=== PATIENT | male | born 1950 | race Caucasian/White ===

== ENCOUNTER 2019-09-18 13:44 | Inpatient (IN) | payer MEDICARE ==
[2019-09-18 14:34] LABS: #Eosinphils 0.2 thou/uL (0.0-0.7); #Lymphocytes 1.6 thou/uL (1.20-3.40); #Monocytes 0.7 thou/uL (0.11-0.59); #Neutrophils 7.5 thou/uL (1.40-6.50); %Eosinophils 1.9 % (0.0-10.0); %Lymphocytes 16.1 % (21.0-51.0); %Monocytes 7.3 % (0.0-10.0); %Neutrophils 74.7 % (42.0-75.0); Hemoglobin 14.5 g/dL (14.0-18.0); Mean Corpuscular HGB CONC 32.7 g/dL (32.0-36.0); Mean Corpuscular Hemoglobin 30.2 pg (27.0-31.0); Mean Corpuscular Volume 92.5 fL (78.0-98.0); Mean Platelet Volume 7.1 fL (7.4-10.4); Platelet Count 267 thou/uL (130-400); RBC Distribution Width 13.3 % (11.5-14.5); White Blood Cell (WBC) Count 10.1 thou/uL (4.8-10.8)
[2019-09-18] MEDS ORDERED: Piperacillin/Tazobactam 4.5 GM VIAL ONE (14:42)
[2019-09-18 14:59] LABS: ALT (SGPT) 14 U/L (8-55); AST (SGOT) 12 U/L (5-34); Albumin 3.8 g/dL (3.4-4.8); Alkaline Phosphatase 99 U/L (40-110); Anion Gap 16 mmol/L (10-20); BUN (Urea Nitrogen) 16 mg/dL (8.4-25.7); Bilirubin, Total 0.3 mg/dL (0.2-1.2); CK (CPK) 53 U/L (30-200); CRP (Inflammatory) 14.52 mg/dL (= or < 0.5); Calc. Creatinine Clearance 0 mL/min (70-130); Calcium 9.3 mg/dL (7.8-10.44); Carbon Dioxide 25 mmol/L (23-31); Chloride 101 mmol/L (98-107); Estimated GFR-MDRD 60; Globulin 3.5 g/dL (2.4-3.5); Glucose 287 mg/dL (80-115); Protein, Total 7.3 g/dL (5.8-8.1); Sodium 138 mmol/L (136-145)
--- NOTE | 2019-09-18 15:18 | RAD ---
Exam:3 views left foot HISTORY: Diabetic ulcer. Infection. COMPARISON: None FINDINGS: There does appear to be a linear foreign body along the plantar surface of the foot at the level of the fourth/fifth distal metatarsal. There is associated soft tissue swelling. Vascular calcifications are noted Lisfranc alignment is maintained. No fracture. No cortical irregularity. No erosive or destructive changes. IMPRESSION: 1. Radiopaque foreign body. There is associated soft tissue swelling. Correlate for cellulitis. No ra diographic evidence of osteomyelitis.
[2019-09-18] MEDS ORDERED: Bacitracin 1 PK ONE (16:56)
--- NOTE | 2019-09-18 17:10 | PDOC.FPRHP ---
Addendum entered and electronically signed by Franck Dixon MD 09/18/19 18:59 : Allergies: NKDA Medication List: [place] 10 mg PO Daily, Amlodipine 5 mg PO daily, ASA 81 mg PO daily, Nebivolol 10 mg PO daily, Cetirizine 10 mg PO daily, Furosemide 40 mg PO daily, Gabapentin 600 mg PO daily, Metformin 500 mg PO daily, Jardiance (Dosage Unknown), Original Note: - History of Present Illness Chief Complaint: Left Foot Wound History of Present Illness: Mr. Henley is a 69 y/o male with a PMH significant for uncontrolled DM2, CAD s/p 3-vessel CABG, HTN and HLD who presents to the ED with a suspected diabetic foot ulcer on his left foot. The patient states that he had been driving to [place] from [place] over the past 2 days when he noticed that his left foot was beginning to swell. He could not appreciate any pain on his foot because of advance diabetic neuropathy, so he treated the swelling conservatively with a compression stocking. Upon arrival to [place], his noted that the underside of his left foot appeared swollen, with intermittent erythema extending to the mid- tibia and palpable warmth, which prompted his presentation to the ED. He admits to subjective chills, but denies loss of movement of the affected extremity, fevers, N/V/D, ABD pain, or polyuria. ED Course: While in the ED, Mr. Henley received 1 dose of Vancomycin and Zosyn at ~1600, and a 3-view X-Ray of his left foot that demonstrated a radio-opaque foreign body embedded within the soft tissue overlying the [address]th [address] Blade Dodd (General Surgery) was consulted and gently debrided the area with a sterile blade until the foreign body could be removed. Bleeding was minimal, and the foreign body was successfully retrieved, appearing to be a small piece of metallic wire. - History PMHx: DM2, CAD, HTN, HLD, Colon Cancer (2005) PSHx: s/p CABG (2018), Partial Colectomy, Cholecystectomy FHx: Did Not Obtain Social: Remote history of MJ abuse in the 1970s - denies EtOH, tobacco and drug abuse at this time. - Review of Systems General: reports: fever/chills Eyes: denies: eye pain, vision changes ENT: reports: nasal congestion. denies: rhinorrhea Respiratory: reports: congestion. denies: cough, shortness of breath Cardiovascular: denies: chest pain, palpitation Gastrointestinal: denies: nausea, vomiting, diarrhea, abdominal pain Genitourinary: denies: dysuria, polyuria Skin: reports: lesions (See HPI) Musculoskeletal: reports: swelling. denies: pain, tenderness Neurological: reports: numbness (Lower Extremities). denies: syncope, weakness - Vital signs BP: [141/64] HR: [65] RR: [67] Tmax: [100.9] Pox: [97]% on [] Wt: [115 kg] - Physical Exam Constitutional: NAD, awake, alert and oriented, well developed HEENT: normocephalic and atraumatic, PERRLA, no scleral icterus, grossly normal vision, grossly normal hearing, normal nasal mucosa, MMM, oropharynx clear Neck: supple, FROM, no LAD, no JVD Chest: no-tender to palpation, no lesions, other (Sternotomy scar) Heart: RRR, normal S1/S2, no murmurs/rubs/gallops, pulses present (+2 pulses at Radial and Dorsalis Pedis Arteries) Lungs: CTAB, no respiratory distress, good air movement, no rales/rhonchi, no wheezing, no retractions Abdomen: soft, non-tender, bowel sounds present, no masses/distention Musculoskeletal: normal structure, normal tone, ROM grossly normal Neurological: no focal deficit Skin: no jaundice -Skin: Minimal swelling of the left foot with occasional streaks of erythema extending to the mid-tibia. A small area of ulceration was overlying the 4th metatarsal without active bleeding or drainage. There was no pain or tenderness, and there was no decreased ROM. Heme/Lymphatic: no unusual bruising or bleeding, no purpura Psychiatric: normal mood and affect, intact recent and remote memory FMR H&P: Results - Labs Result Diagrams: 09/18/19 14:15 09/18/19 14:15 Lab results: WBC 10.1 thou/uL (4.8-10.8) 09/18/19 14:15 Hgb 14.5 g/dL (14.0-18.0) 09/18/19 14:15 Hct 44.3 % (42.0-52.0) 09/18/19 14:15 MCV 92.5 fL (78.0-98.0) 09/18/19 14:15 Plt Count 267 thou/uL (130-400) 09/18/19 14:15 Neutrophils % 74.7 % (42.0-75.0) 09/18/19 14:15 ESR W[place]gren 97 mm/hr (Less than 20) 09/18/19 14:15 Sodium 138 mmol/L (136-145) 09/18/19 14:15 Potassium 4.0 mmol/L (3.5-5.1) 09/18/19 14:15 Chloride 101 mmol/L (98-107) 09/18/19 14:15 Carbon Dioxide 25 mmol/L (23-31) 09/18/19 14:15 BUN 16 mg/dL (8.4-25.7) 09/18/19 14:15 Creatinine 1.21 mg/dL (0.7-1.3) 09/18/19 14:15 Glucose 287 mg/dL (80-115) H 09/18/19 14:15 Lactic Acid 2.0 mmol/L (0.5-2.2) 09/18/19 14:15 Calcium 9.3 mg/dL (7.8-10.44) 09/18/19 14:15 Total Bilirubin 0.3 mg/dL (0.2-1.2) 09/18/19 14:15 AST 12 U/L (5-34) 09/18/19 14:15 ALT 14 U/L (8-55) 09/18/19 14:15 Alkaline Phosphatase 99 U/L (40-110) 09/18/19 14:15 Creatine Kinase 53 U/L (30-200) 09/18/19 14:15 C-Reactive Protein 14.52 mg/dL (= or < 0.5) H 09/18/19 14:15 Serum Total Protein 7.3 g/dL (5.8-8.1) 09/18/19 14:15 Albumin 3.8 g/dL (3.4-4.8) 09/18/19 14:15 - Radiology Interpretation Other Status: image reviewed by me, report reviewed by me (3-View X-Ray (Left Foot): Radio-opaque foreign body noted within the soft tissue overlying the 4th metatarsal) FMR H&P: A/P - Plan 1. Cellulitis of Left Foot, 2/2 retained foreign body -s/p Vanc, Zosyn and debridement in the ED -Currently on Vanc 1 g Q8H and Zosyn 3.375 g Q6H, renally dosed -General Surgery: Consulted, currently following -Wound Care: Consulted 2. DM2, poorly controlled -Per the patient, home medication regimen includes Metformin 1000 mg PO BID, Jardiance (Dosage Unknown) and Humalog 100-50-100 AC -Patient is unsure of his HgA1C or what his normal blood sugar readings are -Severe peripheral neuropathy -Initiate Metformin 1000 mg PO BID -Aggressive Sliding Scale Insulin -Make further adjustments as 24H Insulin requirements are known 3. HTN, poorly controlled -BP: 141/64 on 09/18 -Restart home medication regimen -Hydralazine 10 mg PO Q4H PRN if BP > 180/100 4. CAD, s/p CABG -Restart home medication regimen Code: Full Diet: Heart Healthy / Carbohydrate COnscious Activity: Ad maci VTE PPx: Lovenox 40 mg SC Dispo: Patient is s/p debridement and currently stable on the Medical Floor. Continue IV antibiotic regimen per above and coordinate as needed with General Surgery, Wound Care. Expected LOS > 48H. FMR H&P: Upper Level - Pertinent history 69 yo M w/ PMH of DMII, CAD, HTN and DM neuropathy presetns for LLE swelling redness and plantar foot ulcer. Pt reports swelling started two day prior to arrival to ED and he wrapped leg. When he unwrapped leg pt reported redness and warmth in addition to ulcer. In ED pt noted to have foreign body underneath ulcer site near left 4th metatarsal. He had bedside debridment by gen surg. - Pertinent findings ros: As above PE: Gen NAD HEENT: NCAT, PERRLA, EOMI CV: No JVD, cap rfefill <2, peripheral pulses 1-2 b/l le, 2+ UE b/l Resp: RR 18, no retractions, cyanosis or paradoxical breathing Abd: Soft NTND Neuro: Complete loss of sensation in b/l feet which is chronic and present for years from DM neuropathy, otherwise moving all extremities without any focal deficit Psych: Alert and cooperative Skin: Erythematous LLE with 4th metatarsal plantar foot ulcer with surrounding erythema and warmth to touch - Plan Date/Time: 09/18/19 1710 I, Flip Dill, , have evaluated this patient and agree with findings/ plan as outlined by international operations manager resident. Pertinent changes/additions are listed here. 1) Diabetic foot ulcer with retained foreign body and cellulitis - admit medical obs - s/p bedside debridement by gen surg with removal of foreign body - cont IV vanc and zosyn and send wound culture 2) DMII - accuchecks achs - Mod SSI - cont home medications 3) HTN: - cont home medications 4) CAD: Cont home medications Dispo: Stable, pt will be admitted for 24-48 hours of IV abx and await wound cultures. LOS estimated <48 hours. General surgery consulted from ED, await recs. Addendum - Attending - Attending Attestation Date/Time: 09/18/19 1905 I personally evaluated the patient and discussed the management with Dr. Dill/ Destiny I agree with the History, Examination, Assessment and Plan documented above with any addition or exceptions noted below. 69 yo WM PMH CAD s/p CABGx3 vz, HTN, and IDDM. Presents with 2 day hx left foot swelling and subjective fever/chills. Patient's noticed an ulcer on the plantar surface of his foot and brought him to the ER. In ER found to have foreign body on XRay. ESR and CRP elevated. surgically debrided in ER by Dr. Dodd. Started on vanc and zosyn. Wound after debridement is approximately 5 cm x5 cm with surrounding erythema. Exam otherwise unremarkable. Admit for IV antibiotics. Primary dx infected diabetic foot wound 2/2 foreign body. Will attempt to gain better DM control in hospital. patient reports moderate compliance with home medications. Dispo, inpatient, medical, >2 midnights.
[2019-09-18] MEDS ORDERED: Piperacillin/Tazobactam 3.375 GM in Sodium Chloride 0.9% 100 ML IVPB SCH ×2 (18:00→22:00)
[2019-09-18] MEDS ORDERED: Acetaminophen 325 MG TAB ONE (18:13)
[2019-09-18] MEDS ORDERED: Ondansetron PF 4 MG/2 ML Vial IVP PRN (18:39)
[2019-09-18] MEDS ORDERED: Ondansetron ODT 4 MG TAB SL PRN (18:39)
[2019-09-18] MEDS ORDERED: Acetaminophen 325 MG TAB PO PRN ×2 (18:39→18:49)
[2019-09-18] MEDS ORDERED: Dextrose 5% in Water 1,000 ML IV PRN (18:49)
[2019-09-18] MEDS ORDERED: Dextrose 50% Abboject 50 ML SYRINGE SLOW IVP PRN (18:49)
[2019-09-18] MEDS ORDERED: Ondansetron ODT 4 MG TAB PO PRN (18:49)
[2019-09-18] MEDS ORDERED: HYDROcodone/Acetaminophen 10/325 mg Tablet PO PRN (18:49)
--- NOTE | 2019-09-18 18:50 | CON ---
DATE OF CONSULTATION: HISTORY OF PRESENT ILLNESS: Vladimir Henley is a 69-year-old male patient, diabetic, insulin dependent, traveling from [place] for his [id number]'s . The patient for the past 3 days has noticed some swelling in his left foot. He does not recall any trauma. He states his checks his feet routinely. He reported to the emergency room. X-rays revealed a foreign body in the plantar left foot, metallic. He was noted to have cellulitis of his left foot along the medial arch, dorsum of the foot extending up to his leg, lower 3rd. Family Practice is admitting him. He has been given vancomycin and Zosyn. I have been asked to see him. At the bedside, I debrided blistered skin on the plantar aspect of the forefoot, excised blistered skin and under this macerated tissue, I identified a foreign body. Foreign body was removed. This was sharp piece of wire. There are no other sinus tracts and no evidence of deep infection. He has palpable pedal pulses. No evidence of PAD. ALLERGIES: NONE. TOBACCO: None. ALCOHOL: Rarely. MEDICATIONS: He takes insulin 3 times a day and antihypertensive. List of medications is not provided at this time. PAST SURGICAL HISTORY: Coronary artery bypass grafting 15 months ago and did not have myocardial infarctions, saw his circulator in [place] recently in the last few weeks and he was told he was doing well. He does not have any chest pain or pressure. Colon resection in 2004. Received chemotherapy orally. No radiation therapy. Does not recall which part of his colon was removed. Bilateral carpal tunnel, bilateral ulnar nerve releases, laparoscopic cholecystectomy, hand surgery. PAST MEDICAL HISTORY: Diabetes mellitus, insulin dependent; hypertension; coronary artery disease, stable, asymptomatic currently. recommended he have a sleep study, but he has refused today. Previous sleep study suggests a sleep apnea. SOCIAL HISTORY: The patient is retired. He is . PHYSICAL EXAMINATION: VITAL SIGNS: Blood pressure 130/70, heart rate 74, and respiratory rate 18. HEAD, EARS, EYES, NOSE, AND THROAT: Unremarkable. LUNGS: Clear to auscultation. No wheezing. CARDIAC: Regular rate and rhythm without murmur or gallop. ABDOMEN: Soft, nontender, slightly obese. EXTREMITIES: Palpable femoral, popliteal, dorsalis pedis pulses, posterior tibial pulses bilaterally over the plantar foot, forefoot, there is an area of blistered skin as described above. The skin was removed. Foreign body removed. There is no evidence of deep sinus tracts. There is cellulitis of the medial arch, dorsum of the foot and left lower leg. LABORATORY DATA: White count 10 and hemoglobin 14. Sodium 138, potassium 4.0, BUN 16, and creatinine 1.21. ASSESSMENT AND PLAN: Foreign body, left foot, removed at the bedside. Blistered skin removed. I would recommend he wash his foot daily with soap and water and apply antibiotic ointment, Telfa, and Felipe wrap. He can have an orthotic shoe to accommodate his dressings and provide protection during ambulation. He can weight bear as tolerated. He will need intravenous antibiotics. I will follow along with you in case there is unexpected development, but this should heal without problems and no other surgical intervention is necessary. Job ID: [id number]
[2019-09-18 19:42] VITALS: BMI 34.8
[2019-09-18] MEDS ORDERED: Vancomycin HCl 1.75 GM in Sodium Chloride 0.9% 250 ML 300 ML IVPB SCH (22:00)
[2019-09-18] MEDS ORDERED: Vancomycin HCl 1 GM in Sodium Chloride 0.9% 250 ML 300 ML IVPB SCH (22:00)
[2019-09-18] MEDS: Piperacillin/Tazobactam 3.375 GM in Sodium Chloride 0.9% 100 ML IVPB SCH (22:33)
[2019-09-18] MEDS: Famotidine 20 MG TAB PO SCH (22:35)
[2019-09-18] MEDS: HumaLOG 300 UNITS/3 ML VIAL SC PRN (22:36)
[2019-09-19] MEDS ORDERED: Vancomycin HCl 1 GM in Sodium Chloride 0.9% 250 ML 300 ML IVPB SCH (00:01)
[2019-09-19] MEDS: HumaLOG 300 UNITS/3 ML VIAL SC PRN ×3 (00:34→11:29)
[2019-09-19] MEDS: Vancomycin HCl 1 GM in Premix Bag 1 BAG IVPB SCH ×2 (00:35→07:59)
[2019-09-19] MEDS: Piperacillin/Tazobactam 3.375 GM in Sodium Chloride 0.9% 100 ML IVPB SCH ×2 (04:42→09:07)
[2019-09-19 05:11] LABS: #Eosinphils 0.3 thou/uL (0.0-0.7); #Lymphocytes 1.6 thou/uL (1.20-3.40); #Monocytes 0.6 thou/uL (0.11-0.59); #Neutrophils 5.2 thou/uL (1.40-6.50); %Eosinophils 3.6 % (0.0-10.0); %Lymphocytes 20.6 % (21.0-51.0); %Monocytes 7.7 % (0.0-10.0); %Neutrophils 68.1 % (42.0-75.0); Mean Corpuscular HGB CONC 34.1 g/dL (32.0-36.0); Mean Corpuscular Hemoglobin 31.4 pg (27.0-31.0); Mean Platelet Volume 8.3 fL (7.4-10.4); Platelet Count 236 thou/uL (130-400); RBC Distribution Width 14.2 % (11.5-14.5); Red Blood Cell (RBC) Count 4.15 mill/uL (4.70-6.10); White Blood Cell (WBC) Count 7.7 thou/uL (4.8-10.8)
--- NOTE | 2019-09-19 06:24 | PDOC.FM ---
- Subjective Subjective: Mr. Henley was resting comfortably in e chair in his room at the time of evaluation. Aside from poor sleep, he denied any acute overnight events suchs as fevers, chills, headaches, N/V, chest pain or shortness of breath. His was not present at the time of evaluation. - Objective Vital Signs & Weight: Vital Signs (12 hours) Temp Pulse Resp BP Pulse Ox 09/19/19 04:00 98.6 F 64 19 157/68 H 95 09/18/19 20:00 98.4 F 68 19 142/66 H 95 09/18/19 19:30 98.6 F 66 16 143/96 H 95 Weight Weight 113.357 kg Result Diagrams: 09/19/19 04:40 09/19/19 06:00 Phys Exam - Physical Examination Constitutional: NAD HEENT: moist MMs, oral pharynx no lesions Neck: supple, full ROM Respiratory: no wheezing, no rales, no rhonchi, clear to auscultation bilateral Cardiovascular: RRR, no significant murmur, no rub Gastrointestinal: soft, non-tender, positive bowel sounds Musculoskeletal: no edema, pulses present +2 pulses at Dorsalis Pedis Arteries Neurological: non-focal, moves all 4 limbs Psychiatric: normal affect, A&O x 3 Deviation from normal: Reduced erythema and warmth, s/p debridement of left plantar foot Dx/Plan - Plan Plan: 1. Cellulitis of Left Foot, 2/2 retained foreign body -s/p Vanc, Zosyn and debridement in the ED -Currently on Vanc 1 g Q8H and Zosyn 3.375 g Q6H, renally dosed -General Surgery: Consulted, currently following -Wound Care: Consulted -Vanc Trough: 1500 on 09/19 2. DM2, poorly controlled -Per the patient, home medication regimen includes Metformin 1000 mg PO BID, Jardiance (Dosage Unknown) and Humalog 100-50-100 AC -Patient is unsure of his HgA1C or what his normal blood sugar readings are -Severe peripheral neuropathy bilaterally -Initiate home Metformin regimen -Aggressive Sliding Scale Insulin -Make further adjustments as 24H insulin requirements are known - consider adding long-acting insulin -HgA1C: Pending 3. HTN, poorly controlled -BP: 157/68on 09/19 -Restart home medication regimen -Hydralazine 10 mg PO Q4H PRN if BP > 180/100 4. CAD, s/p CABG -Restart home Rosuvastatin regimen 5. Hypothyroidism -Restart home Levothyroxine regimen Code: Full Diet: Heart Healthy / Carbohydrate Conscious Activity: Ad maci VTE PPx: Lovenox 40 mg SC Dispo: Patient is s/p debridement and currently stable on the Medical Floor. Continue IV antibiotic regimen per above and coordinate as needed with General Surgery, Wound Care. Expected LOS < 48H. Addendum - Attending - Attending Attestation Date/Time: 09/19/19 0619 I personally evaluated the patient and discussed the management with Dr. Dixon. I agree with the History, Examination, Assessment and Plan documented above with any addition or exceptions noted below. The patient is doing well. Will get additional imaging of the foot to eval for osteo. Cellulitis is improving. Continue antibiotics.
[2019-09-19 06:30] LABS: Albumin 3.5 g/dL (3.4-4.8)
[2019-09-19 06:31] LABS: Chloride 103 mmol/L (98-107); Potassium 3.8 mmol/L (3.5-5.1); Sodium 140 mmol/L (136-145)
[2019-09-19 06:32] LABS: Calcium 9.1 mg/dL (7.8-10.44); Glucose 190 mg/dL (80-115)
[2019-09-19 06:33] LABS: Globulin 3.4 g/dL (2.4-3.5); Protein, Total 6.9 g/dL (5.8-8.1)
[2019-09-19 06:34] LABS: Anion Gap 12 mmol/L (10-20); Bilirubin, Total 0.4 mg/dL (0.2-1.2); Carbon Dioxide 29 mmol/L (23-31)
[2019-09-19 06:35] LABS: Alkaline Phosphatase 93 U/L (40-110)
[2019-09-19 06:36] LABS: Calc. Creatinine Clearance 112 mL/min (70-130); Estimated GFR-MDRD 72
[2019-09-19 06:37] LABS: AST (SGOT) 10 U/L (5-34); BUN (Urea Nitrogen) 15 mg/dL (8.4-25.7)
[2019-09-19 06:38] LABS: ALT (SGPT) 13 U/L (8-55)
[2019-09-19 07:26] VITALS: TEMP 98.4
[2019-09-19 07:57] LABS: Hemoglobin A1c 9.6 % (4.0-6.0)
[2019-09-19] MEDS ORDERED: metFORMIN 500 MG TAB PO SCH ×3 (08:00→09:00)
[2019-09-19] MEDS ORDERED: Non-Formulary Item 1 EACH (Empagliflozin [Jardiance] 25 MG) PO PRN (08:39)
[2019-09-19] MEDS ORDERED: Empagliflozin [Jardiance] 25 MG PO PRN (08:50)
--- NOTE | 2019-09-19 08:56 | OP ---
DATE OF PROCEDURE: 09/18/2019 PREOPERATIVE DIAGNOSIS: Diabetic foot infection, left with foreign body. POSTOPERATIVE DIAGNOSIS: Diabetic foot infection, left with foreign body. PROCEDURES PERFORMED: Bedside debridement of blistered diabetic skin and underlying macerated skin with removal of foreign body. ANESTHESIA: None. DESCRIPTION OF PROCEDURE: With the patient at bedside in the emergency room, plantar foot was cleansed with alcohol, raised blistered skin evacuated. There was no purulent material. Macerated skin beneath removed bluntly with scrubbing. There was a black short piece of metal retrieved, discarded. No other abnormalities were noted. There was about a 4 cm area besides blistered skin. ASSESSMENT AND PLAN: Diabetic foot infection. We would recommend continued local wound care and intravenous antibiotics. No other surgical interventions are planned at this time. Job ID: [id number]
[2019-09-19] MEDS ORDERED: Benzonatate 100 MG CAP PO SCH (09:00)
[2019-09-19] MEDS ORDERED: Furosemide 40 MG TAB PO SCH ×2 (09:00)
[2019-09-19] MEDS ORDERED: Amlodipine 5 MG TAB PO SCH (09:00)
[2019-09-19] MEDS ORDERED: Nebivolol HCl 5 MG TAB PO SCH (09:00)
[2019-09-19] MEDS ORDERED: Enoxaparin Sodium 40 MG/0.4 ML SYRINGE SC SCH (09:00)
[2019-09-19] MEDS ORDERED: Aspirin 81 mg Enteric Coated Tablet PO SCH (09:00)
[2019-09-19] MEDS ORDERED: Gabapentin 300 MG CAP PO SCH (09:00)
[2019-09-19] MEDS ORDERED: Loratadine 10 MG TAB PO SCH (09:00)
[2019-09-19] MEDS: Famotidine 20 MG TAB PO SCH (09:10)
--- NOTE | 2019-09-19 11:52 | PRG ---
DATE OF SERVICE: 09/19/2019 Vladimir Henley's left foot wound looks a lot better. Cellulitis of left leg and foot has resolved. In my opinion, the patient will be discharged home with daily washing his foot with soap and water and apply antibiotic ointment and Telfa. He can follow up with his primary care doctor. I do not think MRI or CAT scan is necessary. He has been afebrile and his white count is normal. He feels much better. He can weightbear as tolerated. I will see him as needed. Please call if necessary. Job ID: [id number]
[2019-09-19 16:11] VITALS: BP 155/72
[2019-09-19] MEDS ORDERED: Sulfameth/Trimethoprim DS 800-160mg TAB PO SCH (21:00)
[2019-09-19] MEDS ORDERED: Prevnar 13-Val Conj/PF 0.5 ML SYRINGE IM ONE (21:00)
[2019-09-19] MEDS ORDERED: Rosuvastatin 10 MG TAB PO SCH (21:00)
[2019-09-19] MEDS ORDERED: FLU VACC TS2019-20(65YR UP)/PF 180 MCG/0.5 ML SYRINGE IM ONE (21:00)
[2019-09-19] MEDS ORDERED: Amoxicillin/Potassium Clav 875 MG TAB PO SCH (21:00)
[2019-09-20] MEDS ORDERED: Levothyroxine Sodium 75 MCG TAB PO SCH (06:00)
--- NOTE | 2019-09-22 09:55 | DIS ---
DATE OF ADMISSION: 09/18/2019 DATE OF DISCHARGE: 09/19/2019 RESIDENT: Franck Dixon MD ADMITTING ATTENDING: Moustapha Pretty MD DISCHARGE ATTENDING: Len Sanchez MD CONSULTS: Blade Dodd MD, General Surgery. PROCEDURES: Foot x-ray demonstrating a radiopaque foreign body with associated soft tissue swelling at the level of fourth and fifth distal metatarsal on the left foot. No radiographic evidence of osteomyelitis. In ER, debridement of the same with subsequent removal of the foreign body. PRIMARY DIAGNOSES: Cellulitis, retained foreign body. SECONDARY DIAGNOSES: Coronary artery disease, status post coronary artery bypass grafting, hypertension, diabetes type 2, hypothyroidism, obesity, hyperlipidemia. DISCHARGE MEDICATIONS: 1. Augmentin 875 mg p.o. q.12 hours. 2. Bactrim Double Strength one tab p.o. b.i.d. DISCONTINUED MEDICATIONS: 1. Amlodipine 5 mg. 2. Aspirin 81 mg. 3. Tessalon 100 mg. 4. Lovenox 40 mg. 5. Famotidine 20 mg. 6. Furosemide 40 mg. 7. Gabapentin 600 mg. 8. Insulin human lispro. 9. Insulin human Humalog. 10. Loratadine. 11. Metformin 500 mg. 12. Nebivolol 10 mg. 13. Zosyn 3.375 g q.6. 14. Vancomycin 1 g. HISTORY OF PRESENT ILLNESS AND HOSPITAL COURSE: Mr. Henley is a 69-year-old male with a past medical history significant for uncontrolled diabetes type 2, coronary artery disease status post three-vessel CABG, hypertension, and hyperlipidemia, who presents to the ED with suspected diabetic foot ulcer in his left foot. The patient states that he has been driving to [place] from [place] over the past two days and he noticed that his left foot has being to swell. As he has advanced diabetic neuropathy, he cannot appreciate any pain on his foot, so he treated the swelling conservatively with a compression stocking. Upon arrival to [place], his noted the underside of his left foot appeared very swollen with intermittent erythema extending to mid tibia and palpable warmth, which prompted his presentation to the ED. He admits to subjective chills, but denies loss of the movement at the affected extremity, any fevers, nausea, vomiting, diarrhea, abdominal pain, or polyuria. While in the ER, he received one dose of vancomycin and Zosyn at approximately 1600 hours, as well as a three-view x-ray of his foot with the aforementioned demonstration of the radiopaque findings and the swelling at the fifth metatarsal. Dr. Blade Dodd of General Surgery was consulted and gently debrided the area with sterile blade until the foreign body could be removed. The foreign body appeared to be a 2 cm wire that was inserted perpendicular to the plane of the foot. No additional bodies were noted and there was no concern for osteomyelitis at that time. Bleeding was minimal and the foreign body was completely removed, appearing to have completely removed all evidence of foreign body. The wound was cleansed and wrapped with sterile gauze. Antibiotics were initiated. During the patient's hospital stay, his condition improved greatly and the swelling of his foot decreased greatly as did the erythema and subjective warmth. The patient was doing well and was cleared for discharge on 09/19/2019. After that, he was discharged with the aforementioned medication regimen mentioned elsewhere and was documented prior to discharge. PHYSICAL EXAMINATION: His vital signs reveals temperature of 98.4, pulse of 60, blood pressure 155/72, respiration rate of 20 per minute, O2 sats 93% on room air. LABORATORY ANALYSIS: Revealed a white blood cell count of 7.7, hemoglobin 13, hematocrit 38.2, platelet count of 236. Chem panel revealed a sodium of 140, potassium of 3.8, chloride of 103, carbon dioxide 29, and BUN of 15, creatinine 1.03. POC glucose 190. Lactic acid of 2, calcium 9.1, total bilirubin 0.4, AST 10, ALT 13, alkaline phosphatase 93. Creatine kinase 53. C-reactive protein 14.52. DISPOSITION: Stable. DISCHARGE INSTRUCTIONS: 1. Location: Home. 2. Diet: Heart-healthy and carbohydrate conscious. 3. Activity: No restrictions. 4. Followup: The patient was encouraged to take his prescribed antibiotic regimen and apply a twice-daily antibiotic cream that he could obtain over the counter as well as ensure that the area was cleaned also twice daily and wrapped with sterile gauze. The patient was encouraged to follow up with his primary care physician within 1 to 2 weeks following his return to [place]. Job ID: [id number]
== END 2019-09-19 16:17 | disposition home or self-care (01) | DRG 638 ==
LOC: ERS 13:44 → T4-B 18:27
PROVIDERS: ADMIT Family Medicine; ATTEND Family Medicine
PROC: 0HDNXZZ Extraction of Left Foot Skin, External Approach (ICD-10-PCS; principal; 2019-09-18)
PROC: 3E02340 Introduction of Influenza Vaccine into Muscle, Percutaneous Approach (ICD-10-PCS; 2019-09-19)
PROC: 3E0234Z Introduction of Serum, Toxoid and Vaccine into Muscle, Percutaneous Approach (ICD-10-PCS; 2019-09-19)
DX: E11.621 Type 2 diabetes mellitus with foot ulcer (principal); L03.116 Cellulitis of left lower limb; I10 Essential (primary) hypertension; Z23 Encounter for immunization; E03.9 Hypothyroidism, unspecified; I25.10 Atherosclerotic heart disease of native coronary artery without angina pectoris; L97.529 Non-pressure chronic ulcer of other part of left foot with unspecified severity; E11.65 Type 2 diabetes mellitus with hyperglycemia; E11.40 Type 2 diabetes mellitus with diabetic neuropathy, unspecified; E78.5 Hyperlipidemia, unspecified; Z95.1 Presence of aortocoronary bypass graft; Z90.49 Acquired absence of other specified parts of digestive tract; Z88.8 Allergy status to other drugs, medicaments and biological substances; Z79.84 Long term (current) use of oral hypoglycemic drugs; Z79.82 Long term (current) use of aspirin; Z79.899 Other long term (current) drug therapy; Z85.038 Personal history of other malignant neoplasm of large intestine
CPT/HCPCS: 36415; 36416; 80053; 82550; 83036; 83605; 85025; 85652; 86140; 86850; 86900; 86901; 87040; 96365; 96366; 96367; J1650; J2543; J3370; J3490